=== PATIENT | female | born 1990 | race American Indian/Alaskan Native ===

== ENCOUNTER 2019-08-04 12:17 | Emergency (ER) | payer SELFPAY ==
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
[2019-08-04 13:41] LABS: Bilirubin,Urine NEG (Negative); Blood,Urine LG (Negative); Color,Urine Yellow (Yellow); Mucus,Urine FEW /HPF; Protein,Urine <15 mg/dL mg/dL (Negative); Urobilinogen,Urine < 2.0 mg/dL (<2.0); WBC,Urine < 1.0 /HPF (0.0-6.0)
[2019-08-04 13:52] LABS: HCG Qualitative,Urine Negative (Negative)
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
[2019-08-04] MEDS ORDERED: IBUPROFEN 800 MG TAB PO ONE (17:30)
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
[2019-08-04 18:17] VITALS: BP 115/70
== END 2019-08-04 18:16 | disposition home or self-care (01) ==
LOC: ED 12:17
DX: S16.1XXA Strain of muscle, fascia and tendon at neck level, initial encounter (principal); S09.90XA Unspecified injury of head, initial encounter; Z79.899 Other long term (current) drug therapy; W22.8XXA Striking against or struck by other objects, initial encounter; Y93.89 Activity, other specified; Y92.89 Other specified places as the place of occurrence of the external cause; Y99.8 Other external cause status
CPT/HCPCS: 70450; 81001; 81025

== ENCOUNTER 2021-09-11 15:56 | Emergency (ER) | payer SELFPAY ==
--- NOTE | 2021-09-11 16:29 | Emergency Department Report ---
ED Female HPI - General Stated complaint: ABDOMINAL PAIN Time Seen by Provider: 09/11/21 16:28 - History of Present Illness Initial comments: 31 yo with pelvic pain and irregular menses. Concern for STI/ - Related Data Previous Rx's Medication Instructions Recorded Last Taken Type Ibuprofen [Motrin 800 MG tab] 800 mg PO Q8HR PRN #15 tablet 08/04/19 Unknown Rx methOCARBAMOL [Robaxin TAB] 1,500 mg PO Q8H PRN #15 tablet 08/04/19 Unknown Rx Ibuprofen [Motrin 800 MG tab] 800 mg PO Q8HR PRN #20 tablet 09/12/21 Unknown Rx Ondansetron [Zofran Odt] 4 mg PO Q4HR #20 tab.rapdis 09/12/21 Unknown Rx cephALEXin [Keflex] 500 mg PO Q12HR #14 cap 09/12/21 Unknown Rx Allergies Allergy/AdvReac Type Severity Reaction Status Date / Time No Known Allergies Allergy Unverified 08/04/19 12:32 ED Review of Systems ROS: Stated complaint: ABDOMINAL PAIN Other details as noted in HPI Comment: All other systems reviewed and negative ED Past Medical Hx - Past Medical History Previous Medical History?: No - Surgical History Past Surgical History?: No - Family History Family history: no significant - Social History Smoking Status: Never Smoker Substance Use Type: None - Medications Home Medications: Home Medications Medication Instructions Recorded Confirmed Last Taken Type Ibuprofen [Motrin 800 MG tab] 800 mg PO Q8HR PRN #15 tablet 08/04/19 Unknown Rx methOCARBAMOL [Robaxin TAB] 1,500 mg PO Q8H PRN #15 tablet 08/04/19 Unknown Rx Ibuprofen [Motrin 800 MG tab] 800 mg PO Q8HR PRN #20 tablet 09/12/21 Unknown Rx Ondansetron [Zofran Odt] 4 mg PO Q4HR #20 tab.rapdis 09/12/21 Unknown Rx cephALEXin [Keflex] 500 mg PO Q12HR #14 cap 09/12/21 Unknown Rx ED Physical Exam - General General appearance: alert, in no apparent distress - Head Head exam: Present: atraumatic, normocephalic - Eye Eye exam: Present: normal appearance - ENT ENT exam: Present: mucous membranes moist - Neck Neck exam: Present: normal inspection - Respiratory Respiratory exam: Present: normal lung sounds bilaterally. Absent: respiratory distress - Cardiovascular Cardiovascular Exam: Present: regular rate, normal rhythm. Absent: systolic m urmur, diastolic murmur, rubs, gallop - GI/Abdominal GI/Abdominal exam: Present: soft, normal bowel sounds - Extremities Exam Extremities exam: Present: normal inspection - Back Exam Back exam: Present: normal inspection - Neurological Exam Neurological exam: Present: alert, oriented X3 - Psychiatric Psychiatric exam: Present: normal affect, normal mood - Skin Skin exam: Present: warm, dry, intact, normal color. Absent: rash ED Course Vital Signs 09/11/21 09/11/21 09/12/21 16:28 23:42 03:18 Temperature 99.8 F H 101.9 F H Pulse Rate 98 H 107 H Respiratory 14 18 20 Rate Blood Pressure 129/71 134/87 [Right] O2 Sat by Pulse 98 100 100 Oximetry ED Medical Decision Making - Lab Data Result diagrams: 09/12/21 00:06 09/12/21 00:06 - Medical Decision Making exam from triage room and eval pending Critical care attestation.: If time is entered above; I have spent that time in minutes in the direct care of this critically ill patient, excluding procedure time. ED Disposition Clinical Impression: Generalized abdominal pain, Febrile illness, acute, Fibroid uterus Disposition: 01 HOME / SELF CARE / HOMELESS Is pt being admited?: No Does the pt Need Aspirin: No Condition: Stable Instructions: Abdominal Pain, Adult, [id number], Fever, Adult, [id number] Prescriptions: cephALEXin [Keflex] 500 mg PO Q12HR #14 cap Ibuprofen [Motrin 800 MG tab] 800 mg PO Q8HR PRN #20 tablet PRN Reason: Pain , Severe (7-10) Ondansetron [Zofran Odt] 4 mg PO Q4HR #20 tab.rapdis Referrals: JOSELO RUTLEDGE MD [Staff Physician] - 3-5 Days PRIMARY CAREMD [Primary Care Provider] - 3-5 Days
[2021-09-11 19:25] LABS: Mucus,Urine 2+ /HPF
[2021-09-11 19:32] LABS: Bilirubin,Urine Negative (Negative); Color,Urine Yellow (Yellow)
[2021-09-11 19:33] LABS: Blood,Urine Negative (Negative); Protein,Urine <15 mg/dL mg/dL (Negative); Urobilinogen,Urine < 2.0 mg/dL (<2.0)
[2021-09-11 19:35] LABS: HCG Qualitative,Urine Negative (Negative)
[2021-09-11 23:44] VITALS: BP 134/87
[2021-09-11] MEDS ORDERED: SODIUM CHLORIDE 0.9% 1000 ML 1,000 ML IV ONE (23:56)
[2021-09-11] MEDS ORDERED: ONDANSETRON 4 MG/2 ML INJ IV ONE (23:56)
[2021-09-11] MEDS ORDERED: MORPHINE 4 MG/1 ML INJ IV ONE (23:56)
--- NOTE | 2021-09-12 00:02 | Emergency Department Report ---
ED Abdominal Pain HPI - General Chief Complaint: Urogenital-Female Stated Complaint: ABDOMINAL PAIN Time Seen by Provider: 09/11/21 16:28 Source: patient Mode of arrival: Ambulatory Limitations: No Limitations - History of Present Illness Initial Comments: 31-year-old female with no significant medical history presents to the emergency department with lower abdominal cramps x6 days. Patient describes pain as crampy sharp worsening radiating to her back. No nausea vomiting or diarrhea, no headache fever, no chest pain no shortness of breath, no dysuria no vaginal discharge, . Last menstrual period was about 5 days ago, she denies being no abdominal surgeries, no history of prior abdominal history issues, MD Complaint: abdominal pain -: Gradual, days(s) Location: LLQ, RLQ, suprapubic Radiation: back Severity scale (0 -10): 10 Quality: cramping Consistency: constant, intermittent Improves With: nothing Worsens With: nothing Associated Symptoms: denies: nausea, vomiting, constipation, dysuria Treatments Prior to Arrival: NSAIDs - Related Data LMP (females 10-50): this week Previous Rx's Medication Instructions Recorded Last Taken Type Ibuprofen [Motrin 800 MG tab] 800 mg PO Q8HR PRN #15 tablet 08/04/19 Unknown Rx methOCARBAMOL [Robaxin TAB] 1,500 mg PO Q8H PRN #15 tablet 08/04/19 Unknown Rx Ibuprofen [Motrin 800 MG tab] 800 mg PO Q8HR PRN #20 tablet 09/12/21 Unknown Rx Ondansetron [Zofran Odt] 4 mg PO Q4HR #20 tab.rapdis 09/12/21 Unknown Rx cephALEXin [Keflex] 500 mg PO Q12HR #14 cap 09/12/21 Unknown Rx Allergies Allergy/AdvReac Type Severity Reaction Status Date / Time No Known Allergies Allergy Unverified 08/04/19 12:32 ED Review of Systems ROS: Stated complaint: ABDOMINAL PAIN Other details as noted in HPI Comment: All other systems reviewed and negative Constitutional: no symptoms reported Eyes: as per HPI ENT: as per HPI Respiratory: no symptoms reported Cardiovascular: denies: chest pain Endocrine: no symptoms reported Gastrointestinal: abdominal pain. denies: nausea, vomiting, diarrhea, constipation, hematemesis, melena Genitourinary: denies: urgency, dysuria, frequency, hematuria, discharge Musculoskeletal: back pain Skin: as per HPI ED Past Medical Hx - Past Medical History Previous Medical History?: No - Surgical History Past Surgical History?: No - Social History Smoking Status: Never Smoker Substance Use Type: None - Medications Home Medications: Home Medications Medication Instructions Recorded Confirmed Last Taken Type Ibuprofen [Motrin 800 MG tab] 800 mg PO Q8HR PRN #15 tablet 08/04/19 Unknown Rx methOCARBAMOL [Robaxin TAB] 1,500 mg PO Q8H PRN #15 tablet 08/04/19 Unknown Rx Ibuprofen [Motrin 800 MG tab] 800 mg PO Q8HR PRN #20 tablet 09/12/21 Unknown Rx Ondansetron [Zofran Odt] 4 mg PO Q4HR #20 tab.rapdis 09/12/21 Unknown Rx cephALEXin [Keflex] 500 mg PO Q12HR #14 cap 09/12/21 Unknown Rx ED Physical Exam - General Limitations: No Limitations General appearance: alert, in no apparent distress - Head Head exam: Present: atraumatic - Eye Eye exam: Present: normal appearance - ENT ENT exam: Present: normal exam, normal orophraynx - Neck Neck exam: Present: normal inspection - Respiratory Respiratory exam: Present: normal lung sounds bilaterally. Absent: respiratory distress, wheezes - Cardiovascular Cardiovascular Exam: Present: regular rate, normal rhythm - GI/Abdominal GI/Abdominal exam: Present: soft, tenderness, normal bowel sounds. Absent: distended, guarding - Extremities Exam Extremities exam: Present: normal inspection, full ROM - Back Exam Back exam: Present: normal inspection, full ROM, tenderness ED Course Vital Signs 09/11/21 09/11/21 09/12/21 16:28 23:42 03:18 Temperature 99.8 F H 101.9 F H Pulse Rate 98 H 107 H Respiratory 14 18 20 Rate Blood Pressure 129/71 134/87 [Right] O2 Sat by Pulse 98 100 100 Oximetry - Reevaluation(s) Reevaluation #1: 09/12/21 00:02 Awaiting lab results and disposition. No change from prior assessment, not yet medicated . 09/12/21 03:42 ED Medical Decision Making - Lab Data Result diagrams: 09/12/21 00:06 09/12/21 00:06 - Medical Decision Making Differential diagnosis includes pyelonephritis,gastritis gastroente ritis,.appendicitis, diverticulitis, pancreatitis, renal colic, 31-year-old female with no significant medical history presents to the emergency department with lower abdominal cramps x6 days. Patient describes pain as crampy sharp worsening radiating to her back. No nausea vomiting or diarrhea, n o headache fever, no chest pain no shortness of breath, no dysuria no vaginal discharge, . Last menstrual period was about 5 days ago, she denies being no abdominal surgeries, no history of prior abdominal history issues. At the time of discharge patient began to spike a fever, CT abdomen pelvis ordered to rule out other acute causes of abdominal pain. -CT scan resulted, with exception of the fibroids no acute abdominal processes, no source of acute fever most likely due to her urinary tract infection. Versus other viral pathology. Fevers improved during ED course patient is drinking and tolerating oral intake and reports marked improvement of her symptoms. Plan is to discharge home with antibiotics, NSAIDs for fever control and pain management, and OB referral. Patient verbalized understanding of everything as discussed including completing her medication and return precautions. She ambulates steadily out of the emergency department with her partner. Critical care attestation.: If time is entered above; I have spent that time in minutes in the direct care of this critically ill patient, excluding procedure time. ED Disposition Clinical Impression: Generalized abdominal pain, Febrile illness, acute, Fibroid uterus Disposition: 01 HOME / SELF CARE / HOMELESS Is pt being admited?: No Does the pt Need Aspirin: No Condition: Stable Instructions: Abdominal Pain, Adult, [id number], Fever, Adult, [id number] Prescriptions: cephALEXin [Keflex] 500 mg PO Q12HR #14 cap Ibuprofen [Motrin 800 MG tab] 800 mg PO Q8HR PRN #20 tablet PRN Reason: Pain , Severe (7-10) Ondansetron [Zofran Odt] 4 mg PO Q4HR #20 tab.rapdis Referrals: PRIMARY CARE, [Primary Care Provider] - 3-5 Days JOSELO RUTLEDGE MD [Staff Physician] - 3-5 Days
[2021-09-12 00:42] LABS: Hematocrit 29.5 % (30.3-42.9); Hemoglobin 8.9 gm/dl (10.1-14.3); Mean Corpuscular HGB Conc 30 % (30-34); Mean Corpuscular Volume 72 fl (79-97); Platelet Count 306 K/mm3 (140-440); Red Blood Count 4.12 M/mm3 (3.65-5.03)
[2021-09-12 00:43] LABS: Basophils % (Auto) 0.3 % (0.0-1.8); Lymphocytes # (Auto) 0.4 K/mm3 (1.2-5.4); Lymphocytes % (Auto) 3.3 % (13.4-35.0); Monocytes # (Auto) 1.2 K/mm3 (0.0-0.8); Monocytes % (Auto) 10.3 % (0.0-7.3); Red Cell Distribution Width 21.2 % (13.2-15.2)
[2021-09-12 01:01] LABS: Alanine Aminotransferase 19 units/L (7-56); Albumin 4.1 g/dL (3.9-5); Blood Urea Nitrogen 8 mg/dL (7-17); Calcium 9.2 mg/dL (8.4-10.2); Hemolysis Index 10
[2021-09-12 01:07] LABS: BUN/Creatinine Ratio 11
[2021-09-12] MEDS ORDERED: KETOROLAC 30 MG/1 ML INJ IV ONE (03:05)
[2021-09-12] MEDS ORDERED: MORPHINE 4 MG/1 ML INJ IV ONE (03:26)
[2021-09-12] MEDS ORDERED: ONDANSETRON 4 MG/2 ML INJ IV ONE (03:30)
[2021-09-12] MEDS ORDERED: SODIUM CHLORIDE 0.9% 1000 ML 1,000 ML IV ONE (03:30)
--- NOTE | 2021-09-12 05:08 | Cat Scan Report ---
CT ABDOMEN AND PELVIS WITH CONTRAST INDICATION / CLINICAL INFORMATION: abd pain, fever, . TECHNIQUE: Axial CT images were obtained through the abdomen and pelvis after 100 cc Omnipaque [address] scans at this location are performed using CT dose reduction for ALARA by means of automated exposure control. COMPARISON: None available. FINDINGS: LOWER CHEST: No significant abnormality of the imaged chest. LIVER: No focal lesion. No acute findings. GALLBLADDER / BILE DUCTS: No significant abnormality. Biliary ducts grossly unremarkable. SPLEEN: No significant abnormality. PANCREAS: No significant abnormality. ADRENALS: No significant abnormality. KIDNEYS/URETERS: No stones or hydronephrosis. No solid renal lesion. STOMACH / DUODENUM / SMALL BOWEL: The stomach, duodenum, and small bowel demonstrate no significant a bnormality. No specific abnormality of the mesentery demonstrated. COLON: No significant abnormality. APPENDIX: No significant abnormality. PERITONEUM: No free air or free fluid are present within the abdomen or pelvis. LYMPH NODES: No significant adenopathy. AORTA / ARTERIES: No significant abnormality. IVC / VEINS: No significant abnormality. URINARY BLADDER: No significant abnormality. REPRODUCTIVE ORGANS: The uterus is moderately enlarged and demonstrates numerous enhancing fibroids. Right and left ovary unremarkable. SKELETAL SYSTEM: No significant abnormality. ADDITIONAL ABDOMINAL/PELVIC FINDINGS: None. IMPRESSION: 1. Enlarged fibroid uterus. 2. No imaging findings to suggest etiology of the provided symptoms. Signer Name: Joseph Solis II, MD Signed: 09/12/2021 5:04 AM Workstation Name: [id number]
== END 2021-09-12 06:05 | disposition home or self-care (01) ==
LOC: ED 15:56
DX: R10.84 Generalized abdominal pain (principal); R50.9 Fever, unspecified; D25.9 Leiomyoma of uterus, unspecified
CPT/HCPCS: 36415; 80053; 81001; 81025; 83690; 85025; 87086; 96361; 96374; 96375; 99284; J1885; J2270; J2405; J7030

== ENCOUNTER 2021-09-12 22:37 | Emergency (ER) | payer SELFPAY ==
[2021-09-12] MEDS ORDERED: SODIUM CHLORIDE 0.9% 1000 ML 1,000 ML IV ONE (23:44)
[2021-09-12 23:48] VITALS: BP 114/90
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
== END 2021-09-13 02:21 | disposition left against medical advice (07) ==
LOC: ED 22:37
DX: F10.129 Alcohol abuse with intoxication, unspecified (principal); Y90.9 Presence of alcohol in blood, level not specified
CPT/HCPCS: 99282